=== PATIENT | female | born 1955 | race Caucasian/White ===

== ENCOUNTER 2023-08-09 17:22 | Emergency (ER) | payer MEDICARE, OTHER ==
[~2023-08-09] VITALS: Ht 172.7 cm; Wt 98.0 kg
[~2023-08-09 17:22] MED LIST: SUCR1ORA15 PO
[2023-08-09 17:31] VITALS: BP 109/69; PULSE 64; RESP 16; TEMP 98; O2SAT 98
[2023-08-09] MEDS ORDERED: ketorolac trometh. 30mg/ml inj. IM ONE (19:15)
[2023-08-09] MEDS ORDERED: dicyclomine 10 MG capsule PO ONE (19:15)
[2023-08-09] MEDS ORDERED: mag hydrox/Alum hydrox/simeth 30ml oral suspension PO ONE (19:15)
[2023-08-09] MEDS ORDERED: LIDOcaine 2% Viscous 15ml cup MM PRN (19:15)
[2023-08-09] MEDS ORDERED: ketorolac tromethamine 15mg/ml inj. IM ONE (19:15)
== END 2023-08-09 19:17 | disposition left against medical advice (07) ==
LOC: ER 17:24
DX: R10.13 Epigastric pain (principal); Z53.21 Procedure and treatment not carried out due to patient leaving prior to being seen by health care provider

== ENCOUNTER 2024-03-31 10:20 | Emergency (ER) | payer MEDICARE, MEDICAID ==
[2024-03-31 10:54] LABS: BASOPHILS # (AUTO) 0.1 X10'3 (0-0.2); BASOPHILS % (AUTO) 0.9 % (0-1); EOSINOPHILS # (AUTO) 0.2 X10'3 (0-0.9); EOSINOPHILS % (AUTO) 2.4 % (0-6); HEMATOCRIT 35.1 % (35.0-45.0); HEMOGLOBIN 11.7 g/dl (12.0-16.0); LYMPHOCYTES # (AUTO) 2.2 X10'3 (1.1-4.8); LYMPHOCYTES % (AUTO) 28.5 % (21-51); MEAN CORPUSCULAR HGB CONC 33.3 g/dL (33.0-36.5); MONOCYTES # (AUTO) 0.5 X10'3 (0-0.9); MONOCYTES % (AUTO) 7.2 % (2-12); NEUTROPHILS # (AUTO) 4.6 X10'3 (1.8-7.7); PLATELET COUNT 188 X10'3 (140-440); RED BLOOD COUNT 3.66 X10'6 (4.20-5.60); WHITE BLOOD COUNT 7.6 X10'3 (4.5-11.0)
[2024-03-31 11:17] LABS: APTT 30 SECONDS (22-32); PROTHROMBIN TIME 10.7 SECONDS (9.0-12.0)
[2024-03-31 11:43] LABS: ALANINE AMINOTRANSFERASE 12 U/L (12-78); ALBUMIN 3.1 G/DL (3.4-5.0); ALBUMIN/GLOBULIN RATIO 0.7 (1.1-1.5); ALKALINE PHOSPHATASE 82 IU/L (46-116); ANION GAP 5 (8-16); ASPARTATE AMINO TRANSFERASE 14 U/L (10-37); BILIRUBIN,TOTAL 0.3 MG/DL (0.1-1.0); BLOOD UREA NITROGEN 16 MG/DL (7-18); BUN/CREATININE RATIO 16.8 (10.0-20.0); CALCIUM 9.5 MG/DL (8.5-10.1); CHLORIDE 108 MMOL/L (99-107); CREATININE 0.95 MG/DL (0.40-0.90); GLUCOSE 87 MG/DL (70-104); POTASSIUM 4.2 MMOL/L (3.5-5.1); SODIUM 141 MMOL/L (135-145); TOTAL CARBON DIOXIDE 27.9 MMOL/L (24-32); TOTAL PROTEIN 7.3 G/DL (6.4-8.2); eGFR 59 ML/MIN
[2024-03-31 11:53] LABS: PRO BRAIN NATRIURETIC PEPTIDE 793 PG/ML (0-125)
[2024-03-31] MEDS: ibuprofen tablet 400 MG TABLET PO ONE (13:20)
[2024-03-31 13:31] VITALS: BP 112/65; PULSE 60; RESP 12; TEMP 97.7; O2SAT 100
== END 2024-03-31 13:34 | disposition home or self-care (01) ==
LOC: ER 10:21
DX: S70.11XA Contusion of right thigh, initial encounter (principal); I10 Essential (primary) hypertension; Z88.2 Allergy status to sulfonamides; Z88.0 Allergy status to penicillin; W01.0XXA Fall on same level from slipping, tripping and stumbling without subsequent striking against object, initial encounter; Y93.89 Activity, other specified; Y92.89 Other specified places as the place of occurrence of the external cause; Y99.8 Other external cause status
CPT/HCPCS: 36415; 70450; 71045; 73502; 73564; 80053; 83880; 84484; 85025; 85610; 85730; 93005; 99285